=== PATIENT | female | born 1940 | race Caucasian/White ===

== ENCOUNTER → 2023-10-25 | Outpatient (CLI) | payer MEDICARE, OTHER, SELFPAY ==
--- NOTE | 2023-10-25 15:43 | CT_ITS ---
STUDY: CT CHEST, ABDOMEN T PELVIS WITH CONTRAST REASON FOR EXAM: Female, 82 years old. eval for metastatic disease RADIATION DOSAGE (If Supplied By Facility): CTDIvol = ( 14.09 ) mGy, DLP = ( 970.8 ) mGycm TECHNIQUE: Transaxial imaging was performed following intravenous administration of IV 100mL [id number]. Individualized dose optimization techniques were used for this CT. COMPARISON: FINDINGS: CHEST Right pulmonary and hilar granulomatous calcifications. Bilateral basilar interstitial thickening/atelectasis. There is no demonstrated pleural abnormality. Normal heart and pericardium. Normal mediastinum. Normal hilar regions. Prominent pulmonary arteries suggestive for pulmonary hypertension. Borderline ascending aorta measuring 3.9 cm. Normal aorta arch and descending thoracic aorta. Normal osseous structures. ABDOMEN Normal liver. Normal gallbladder and extrahepatic biliary system. Granulomatous calcifications in the spleen. Normal pancreas. 1.6 cm left adrenal nodule. Normal right kidney. Complex cystic versus solid lesion of the left kidney. Normal visualized stomach. Normal small intestine. Diverticulosis of the colon. The appendix is visualized and appears normal. Calcified abdominal aorta. 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 Normal inferior vena cava. Normal retroperitoneum. Normal abdominal wall. Degenerative vertebral changes with grade 1 retrolisthesis T12-L1 and L1-2. PELVIS Right pulmonary and hilar granulomatous calcifications. Bilateral basilar interstitial thickening/atelectasis. There is no demonstrated pleural abnormality. Normal heart and pericardium. Normal mediastinum. Normal hilar regions. Prominent pulmonary arteries suggestive for pulmonary hypertension. Borderline ascending aorta measuring 3.9 cm. Normal aorta arch and descending thoracic aorta. Normal osseous structures. CT/CT Chest, Abd, Pel w/Contrast IMPRESSION: Granulomatous calcifications in the spleen. Left adrenal nodule. Complex cystic versus solid lesion of the left kidney. Correlation with ultrasound if needed. Diverticulosis of the colon. 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 Uterine fibroid.. Right adnexal heterogeneous fat-containing 4.4 x 3.3 cm mass with calcified rim may be related to germ cell type lesion. Electronically Signed: Lm Hendrickson DO at 20:03 EDT ,
== END | disposition home or self-care (01) ==
LOC: CT 15:42
PROVIDERS: PCP Internal Medicine; Referring Provider Student in an Organized Health Care Education/Training Program; Visit Provider Student in an Organized Health Care Education/Training Program
DX: C50.911 Malignant neoplasm of unspecified site of right female breast (principal)
CPT/HCPCS: 71260; 74177; Q9967

== ENCOUNTER → 2023-10-27 | Outpatient (CLI) | payer MEDICARE, OTHER, SELFPAY ==
--- NOTE | 2023-10-27 09:17 | NM_ITS ---
CLINICAL: 82-year-old female with history of breast carcinoma. WHOLE BODY 99m Tc MDP RADIONUCLIDE BONE SCINTIGRAPHY COMPARISON: None available FINDINGS: Following the intravenous administration of 26.3 mCi of 99m Tc MDP, whole body bone images reveal: 1. Increased radiopharmaceutical concentration is identified in the acromioclavicular compartments of both shoulders, the bilateral elbow and wrist articulations, the mid cervical spine posteriorly on the right, the lower cervical spine posteriorly on the left and right, several thoracic vertebra, the third and fifth lumbar vertebra. Increased uptake is noted in the right ankle articulation. 2. The remaining skeletal structures are scintigraphically unremarkable with normal-appearing renal images and urinary bladder activity identified. Facilitated uptake is noted in the presumably asymptomatic medial and lateral femoral components of the left knee arthroplasty consistent with normal postsurgical change. NM/Bone Scan Whole Body IMPRESSION: 1. The increase in radiopharmaceutical concentration identified in the bilateral shoulders, the right and left elbow and wrist articulations, the cervical, thoracic and lumbar spine is commensurate with degenerative arthritis. 2. Facilitated tracer uptake noted in the right ankle articulation likely represents a component of large articulation synovitis or trauma-fracture involving the distal right tibial metaphysis. Electronically Signed: Nabil Ross DO at 9:21 EDT ,
== END | disposition home or self-care (01) ==
LOC: NM 09:17
PROVIDERS: PCP Internal Medicine; Referring Provider Student in an Organized Health Care Education/Training Program; Visit Provider Student in an Organized Health Care Education/Training Program
DX: C50.911 Malignant neoplasm of unspecified site of right female breast (principal)
CPT/HCPCS: 78306; A9503